=== PATIENT | female | born 1960 | race Caucasian/White ===

== ENCOUNTER 2016-10-23 10:45 | Emergency (ER) | payer BC ==
[~2016-10-23] VITALS: Ht 160 cm; Wt 61.8 kg
[~2016-10-23 10:45] MED LIST: ADVAIR 250/501 DISK IH; CLARITIN PO; CLARITIN,ALAVAR10 MG PO; LAMICTAL200 MG PO; LEXAPRO20 MG PO; MOTRIN800 MG PO; PRISTIQ50 MG PO; SPIRIVA1 INHALATI IH; XANAX1 MG PO
[2016-10-23 11:29] LABS: HEMATOCRIT 45.2 % (36.0-46.0); MCH 29.9 PG (29.0-34.0); MCHC 33.4 G/DL (30.0-36.0); MCV 89.5 FL (83-99); MEAN PLAT.VOLUME 8.9 uM^3 (9.5-12.4); PLATELET COUNT 291 K/uL (156-360); RBC DIS.WIDTH-CV 13.2 % (11.8-14.6); RBC DIS.WIDTH-SD 43.8 % (39-53); RED BLOOD COUNT 5.05 M/uL (3.80-5.20); WHITE BLOOD COUNT 9.9 K/uL (4.1-10.2)
[2016-10-23 11:39] LABS: CHLORIDE 107 mEq/L (99-109); POTASSIUM 3.8 mEq/L (3.7-5.4); SODIUM 142 mEq/L (136-147)
[2016-10-23 11:41] LABS: GLUCOSE 65 mg/dL (70-99)
[2016-10-23 11:43] LABS: ANION GAP 8 MEQ/L (2-14); TOTAL BILIRUBIN 0.6 mg/dL (0.0-1.0)
[2016-10-23 11:45] LABS: ALKALINE PHOSPHATASE 65 IU/L (3-129); GFR ESTIMATE (CALCULATED) > 59 mL/min/
[2016-10-23 11:46] LABS: UREA NITROGEN (BUN) 4 mg/dL (9-23)
[2016-10-23 11:54] LABS: ADD MIUA? NO; BILIRUBIN NEGATIVE; BLOOD NEGATIVE; COLOR YELLOW ((YELLOW)); GLUCOSE (STRIP) NEGATIVE; KETONES NEGATIVE; LEUKOCYTES NEGATIVE; NITRITE NEGATIVE; PROTEIN (STRIP) NEGATIVE; SPECIFIC GRAVITY 1.008 (1.000-1.030); UCUL ADDED? NO; UROBILINOGEN 0.2 MG/DL (0.2-1.0)
[2016-10-23 11:55] LABS: QUANTITATIVE HCG < 4.0 MIU/ML
[2016-10-23] MEDS ORDERED: VICODIN 5-3001 EACH PO (15:45)
[2016-10-23 16:22] VITALS: BP 135/88
== END 2016-10-23 16:23 | disposition home or self-care (01) ==
LOC: EME 10:45
DX: R10.12 Left upper quadrant pain (principal); K76.0 Fatty (change of) liver, not elsewhere classified; J44.9 Chronic obstructive pulmonary disease, unspecified; J45.909 Unspecified asthma, uncomplicated; F17.200 Nicotine dependence, unspecified, uncomplicated
CPT/HCPCS: 74177; 80053; 81003; 84702; 85027; 93005; 99281; 99284; J2270

== ENCOUNTER 2016-11-20 12:47 | Emergency (ER) | payer BC ==
[~2016-11-20] VITALS: Ht 160 cm; Wt 63.4 kg
[~2016-11-20 12:47] MED LIST changes: +VICODIN 5-3001 EACH PO
[2016-11-20 14:44] LABS: MCH 30.4 PG (29.0-34.0); MCHC 34.3 G/DL (30.0-36.0); MCV 88.7 FL (83-99); MEAN PLAT.VOLUME 8.6 uM^3 (9.5-12.4); PLATELET COUNT 272 K/uL (156-360); RBC DIS.WIDTH-CV 12.7 % (11.8-14.6); RBC DIS.WIDTH-SD 41.2 % (39-53); RED BLOOD COUNT 4.96 M/uL (3.80-5.20); WHITE BLOOD COUNT 8.9 K/uL (4.1-10.2)
[2016-11-20 14:55] LABS: CHLORIDE 105 mEq/L (99-109); POTASSIUM 3.8 mEq/L (3.7-5.4); SODIUM 139 mEq/L (136-147)
[2016-11-20 14:56] LABS: GLUCOSE 92 mg/dL (70-99)
[2016-11-20 14:58] LABS: ANION GAP 10 MEQ/L (2-14)
[2016-11-20 15:00] LABS: GFR ESTIMATE (CALCULATED) > 59 mL/min/
[2016-11-20 15:01] LABS: UREA NITROGEN (BUN) 8 mg/dL (9-23)
[2016-11-20 16:52] VITALS: BP 124/71
== END 2016-11-20 16:54 | disposition home or self-care (01) ==
LOC: EME 12:47
PROVIDERS: Emergency Medicine
DX: M54.5 Low back pain (principal); M79.604 Pain in right leg; M79.605 Pain in left leg; J44.9 Chronic obstructive pulmonary disease, unspecified; F17.200 Nicotine dependence, unspecified, uncomplicated
CPT/HCPCS: 72100; 80048; 81003; 85027; 99281; 99284; J1100; J1885